=== PATIENT | male | born 1995 | race African-American/Black ===

== ENCOUNTER 2017-08-22 04:51 | Emergency (ER) | payer OTHER ==
[~2017-08-22] VITALS: Ht 182.9 cm; Wt 75.0 kg
[2017-08-22 04:56] VITALS: BP 170/88; PULSE 81; RESP 22; TEMP 98.8; O2SAT 99
--- NOTE | 2017-08-22 04:58 | PD ---
HPI Chief Complaint: MEDICAL CLEARANCE Time Seen by Provider: 04:56 Travel History International Travel<30 days: No Contact w/Intl Traveler<30days: No Traveled to known affect area: No History of Present Illness HPI 22-year-old male presents emergency department in law enforcement custody for medical clearance. Patient kicked his right leg through a glass window, sustaining a laceration to the right distal lower extremity. Patient is refusing any treatment except for wound care. He does not want it approximated. He does not want updated on any vaccines. He reports no pain. He reports no alterations in sensation. He has no other symptoms to report. [facility] Past Medical History Medical History: Denies Significant Hx Social History Tobacco Use: No Review of Systems Except as stated in HPI: all other systems reviewed are Neg Physical Exam Narrative GENERAL: Well-nourished, well-developed male patient, in no acute distress SKIN: Focused skin assessment warm/dry. 3 cm poorly approximated laceration on the medial aspect of the right distal lower extremity. There are few scattered superficial lacerations surrounding this. Bleeding is controlled. HEAD: Normocephalic. Atraumatic EYES: No scleral icterus. No injection or drainage. NECK: Supple, trachea midline. No JVD or lymphadenopathy. CARDIOVASCULAR: Regular rate RESPIRATORY: No accessory muscle use. GASTROINTESTINAL: Abdomen nondistended. MUSCULOSKELETAL: No cyanosis, or edema. BACK: without obvious deformity. Data Data Last Documented VS Vital Signs Date Time Temp Pulse Resp B/P (MAP) Pulse Ox O2 Delivery O2 Flow Rate FiO2 08/22/17 04:56 98.8 81 22 170/88 (115) 99 Orders Orders Ed Discharge Order (08/22/17 04:57) MDM Medical Decision Making Medical Screen Exam Complete: Yes Emergency Medical Condition: Yes Medical Record Reviewed: Yes Differential Diagnosis Laceration superficial versus deep versus abrasion versus avulsion versus foreign body Narrative Course 22-year-old male presents emergency department for evaluation and medical clearance to go to [facility]. Patient appears without distress. He does sustained lacerations to the right lower extremity. He is refusing approximation. Wounds are cleansed and dressing applied. Patient is medically cleared to be discharged at this time. Diagnosis Primary Impression: Leg laceration Qualified Codes: S81.811A - Laceration without foreign body, right lower leg, initial encounter Referrals: Primary Care Physician Patient Instructions: Acute Wound Care (DC) Additional Instructions: KEEP THE AREA CLEAN AND DRY FOLLOW UP WITH A PRIMARY CARE PROVIDER RETURN TO ED WITH ACUTE WORSENING OF SYMPTOMS Med/Other Pt SpecificInfo: No Change to Meds Disposition: [address] [employer] ENFORCEMNT Condition: Stable LawrenceLiz connerjulio BALDERAS Aug 22, 2017 04:58
== END 2017-08-22 05:09 ==
LOC: NEPD 04:51
DX: S81.811A Laceration without foreign body, right lower leg, initial encounter (principal); W22.09XA Striking against other stationary object, initial encounter; W25.XXXA Contact with sharp glass, initial encounter
CPT/HCPCS: 99283